=== PATIENT | male | born 1960 ===

== ENCOUNTER 2022-09-25 17:45 | Emergency (ER) | payer SELFPAY ==
[2022-09-25 18:16] VITALS: BP 151/84; PULSE 98; RESP 14; TEMP 36.8; O2SAT 98
--- NOTE | 2022-09-25 19:52 | PC.NURSE ---
No answer when called to take to a room.
--- NOTE | 2022-09-25 19:59 | PC.NURSE ---
Pt called x 2 w/ no answer. 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
[2022-09-26 01:37] LABS: Glucose Point of Care 284 mg/dl (65-105)
== END 2022-09-25 20:30 | disposition left against medical advice (07) ==
LOC: ANHED 20:27
PROVIDERS: Emergency Provider Emergency Medicine
DX: T83.84XA Pain due to genitourinary prosthetic devices, implants and grafts, initial encounter (principal)
CPT/HCPCS: 82948; 99199